=== PATIENT | female | born 1955 | race Caucasian/White ===

== ENCOUNTER 2022-05-28 10:03 | Outpatient (CLI) | payer MEDICARE, SELFPAY ==
--- NOTE | 2022-05-28 11:00 | NEURO_ITS ---
Impression: Patient reports a history of pain in right hand. # Evidence of right Carpal Tunnel Syndrome. # Needle/EMG exam showed evidence of chronic neurogenic changes in the right APB, supportive of Carpal Tunnel Syndrome. # Clinical correlation recommended. Motor Nerve Conduction Upper Extremities Median Nerve Conduction Velocity (m/sec) Terminal Latency (msec) Response Voltage(mV) Elbow-Wrist Wrist Elbow Wrist Right 58 3.4 3 6 Left 60 3.0 6 6 Ulnar Nerve Conduction Velocity (m/sec) Terminal Latency (msec) Response Voltage(mV) Above Elbow Below Elbow Wrist Above Elbow Below Elbow Wrist Right 61 61 3.0 6 6 8 Left 58 60 2.5 7 8 9 F-Wave Latency Median (ms) Ulnar (ms) Right 26.3 25.6 Left 26.4 26.7 Sensory Nerve Conduction Upper Extremities Median Nerve Stimulation Terminal Latency (msec) Wrist/Digit Response Voltage (uV) Wrist Right 4.0/3.8 32/48 Left 3.3/3.5 46/47 Ulnar Nerve Stimulation Terminal Latency (msec) Wrist/Digit Response Voltage (uV) Wrist Right 2.0 56 Left 2.0 61 Radial Nerve Terminal Latency (msec) Response Voltage(mV) Right 1.8 51 Left 1.9 61 Left Right Muscles Examined Fibrillation Fasciculation Recruitment Voltage Duration Left Right Left Right Left Right Left Right Left Right Deltoid Biceps X X Brachioradialis Triceps X X Pronator Teres X X Ext Indicis X X Ext Digitorum X X Abd Poll Brev Reduced X X 1st Dorsal Interosseus Paraspinals MTDD
== END 2022-05-28 10:04 | disposition home or self-care (01) ==
PROVIDERS: PCP Family Medicine; Visit Provider Family Medicine
DX: G56.01 Carpal tunnel syndrome, right upper limb (principal)
CPT/HCPCS: 95886; 95911

== ENCOUNTER 2023-03-11 11:27 | Outpatient (CLI) | payer MEDICARE, SELFPAY ==
[2023-03-11 12:38] LABS: Hematocrit 44.7 % (37.0-47.0); Hemoglobin 14.8 g/dL (12.0-15.0); Mean Corpuscular HGB Conc 33.1 g/dl (32-36); Mean Corpuscular Hemoglobin 30.1 pg (26-34); Mean Corpuscular Volume 90.9 fl (80-100); Mean Platelet Volume 9.3 fl (7.4-10.4); Platelet Count Result 348 k/mm3 (150-375); Red Blood Count 4.92 M/mm3 (4.2-5.4); Red Cell Distribution Width 14.3 % (11.5-14.5); White Blood Count 12.7 K/mm3 (4.5-10.0)
[2023-03-11 12:51] LABS: Anion Gap 6 mmol/L (8-16); Blood Urea Nitrogen 18 mg/dL (7-17); Calcium 9.5 mg/dL (8.4-10.2); Carbon Dioxide 31 mmol/L (22-30); Chloride 98 mmol/L (98-107); Cholesterol 215 mg/dL (0-200); Estimated Glomerular Filt Rate > 60; Glucose 106 mg/dL (65-110); HDL Direct 66 mg/dL; Potassium 3.5 mmol/L (3.4-5.0); Sodium 135 mmol/L (137-145); Triglycerides 181 mg/dL (<150)
[2023-03-11 13:02] LABS: LDL Cholesterol Direct 103 mg/dL
[2023-03-11 13:21] LABS: Thyroid Stimulating Hormone 0.822 uIU/mL (0.465-4.680)
== END 2023-03-11 11:28 | disposition home or self-care (01) ==
PROVIDERS: PCP Family Medicine; Visit Provider Family Medicine
DX: E78.5 Hyperlipidemia, unspecified (principal); E03.9 Hypothyroidism, unspecified; Z13.1 Encounter for screening for diabetes mellitus; I10 Essential (primary) hypertension
CPT/HCPCS: 36415; 80048; 80061; 84443; 85027

== ENCOUNTER 2023-06-09 06:13 | Day surgery (SDC) | payer MEDICARE, SELFPAY ==
[2023-05-11 08:37] VITALS: BMI 24.0
[2023-05-26 08:08] VITALS: BMI 24.0
[2023-06-09 06:35] VITALS: BP 138/78; PULSE 95; RESP 20; TEMP 37.6; O2SAT 98
--- NOTE | 2023-06-09 07:11 | P.HP_ITS ---
History of Present Illness History of Present Illness Consent: Risks, benefits, and alternatives have been discussed and questions answered. Patient agrees to proceed with procedure. Chief complaint: positive cologuard test Narrative: Varsha Oleary is a 67 year old female presents for screening colonoscopy. Patient recently had a Cologuard test that was positive. Patient reports that her weight appetite in her bowel movements are normal. She denies abdominal pain. She has had no bleeding. Family history noncontributory. Review of Systems Review of Systems: Review of systems noncontributory. [facility] Social History Social History Smoking status: Former smoker Tobacco type: cigarettes Alcohol intake: current Substance use type: does not use Living arrangements: with family Spiritual care concerns: No Meds Home Medications and Allergies Home Medications Medication Instructions Recorded Confirmed Type sodium,potassium,mag sulfates 17.5 See Rx Instructions PO .COMPLEX 05/11/23 06/09/23 Rx gram-3.13 gram-1.6 gram oral soln #354 mL (Suprep Bowel Prep Kit) ferrous sulfate 220 mg (44 mg 5 mg PO DAILY 05/26/23 06/09/23 History iron)/5 mL oral elixir levothyroxine 75 mcg tablet 75 mcg PO DAILY 05/26/23 06/09/23 History losartan 50 mg tablet 50 mg PO DAILY 05/26/23 06/09/23 History omeprazole 40 mg capsule,delayed 40 mg PO DAILY 05/26/23 06/09/23 History release ropinirole 5 mg tablet 5 mg PO DAILY 05/26/23 06/09/23 History trazodone 100 mg tablet 25 mg PO HS 05/26/23 06/09/23 History valacyclovir 500 mg tablet 500 mg PO DAILY 05/26/23 06/09/23 History Allergies Allergy/AdvReac Type Severity Reaction Status Date / Time codeine AdvReac Severe FLU LIKE Unverified 06/09/23 06:44 SYMPTOMS clemastine AdvReac Unknown SEVERE LEG Verified 06/09/23 06:44 RESTLESSNESS diphenhydramine AdvReac Unknown SEVERE LEG Verified 06/09/23 06:44 RESTLESSNESS menthol AdvReac Unknown SEVERE LEG Verified 06/09/23 06:44 RESTLESSNESS phenylpropanolamine AdvReac Unknown SEVERE LEG Verified 06/09/23 06:44 RESTLESSNESS pseudoephedrine AdvReac Unknown SEVERE LEG Verified 06/09/23 06:44 RESTLESSNESS tripelennamine AdvReac Unknown SEVERE LEG Verified 06/09/23 06:44 RESTLESSNESS triprolidine AdvReac Unknown SEVERE LEG Verified 06/09/23 06:44 RESTLESSNESS Exam Narrative: Physical exam reveals patient to be alert. Vital signs stable. HEENT exam is unremarkable. Patient is anicteric. Lungs are clear to auscultation and percussion. Heart is without murmur or extra sounds. Abdomen bowel sounds are present soft nontender with no organomegaly. Digital and external rectal exam is normal. Assessment and Plan Assessment and plan (1) Positive colorectal cancer screening using Cologuard test: Code(s): R19.5 - Other fecal abnormalities Status: Acute Assessment and Plan: Patient's Cologuard test was noted to be positive. Plan for surveillance colonoscopy at this time.
[2023-06-09] MEDS: LACTATED RINGERS 1,000 ML 150 ML IV CONT (07:32)
--- NOTE | 2023-06-09 08:00 | WPDANESEPPF ---
Anes - Initial Pre Proc Eval Procedure: Operation Date: 06/09/23 08:00 Proposed Procedures p Screening Colonoscopy - Albin Bojorquez MD Date/Time: 06/09/23 08:00 Surgeon: Albin Bojorquez MD Pre Op Diagnosis: positive cologuard test Patient Data Age: 67 Gender: F Height: 1.63 m Weight: 62.7 kg Last Vital Signs Temp 37.6 C 06/09/23 06:35 Pulse 95 06/09/23 06:35 Resp 20 06/09/23 06:35 BP 138/78 06/09/23 06:35 Pulse Ox 98 06/09/23 06:35 O2 Del Method Room Air 06/09/23 06:35 Allergies Allergy/AdvReac Type Severity Reaction Status Date / Time codeine AdvReac Severe FLU LIKE Unverified 06/09/23 07:32 SYMPTOMS clemastine AdvReac Unknown SEVERE LEG Verified 06/09/23 07:32 RESTLESSNESS diphenhydramine AdvReac Unknown SEVERE LEG Verified 06/09/23 07:32 RESTLESSNESS menthol AdvReac Unknown SEVERE LEG Verified 06/09/23 07:32 RESTLESSNESS phenylpropanolamine AdvReac Unknown SEVERE LEG Verified 06/09/23 07:32 RESTLESSNESS pseudoephedrine AdvReac Unknown SEVERE LEG Verified 06/09/23 07:32 RESTLESSNESS tripelennamine AdvReac Unknown SEVERE LEG Verified 06/09/23 07:32 RESTLESSNESS triprolidine AdvReac Unknown SEVERE LEG Verified 06/09/23 07:32 RESTLESSNESS Home Medications Medication Instructions Recorded Confirmed Type sodium,potassium,mag sulfates 17.5 See Rx Instructions PO .COMPLEX 05/11/23 06/09/23 Rx gram-3.13 gram-1.6 gram oral soln #354 mL (Suprep Bowel Prep Kit) ferrous sulfate 220 mg (44 mg 5 mg PO DAILY 05/26/23 06/09/23 History iron)/5 mL oral elixir levothyroxine 75 mcg tablet 75 mcg PO DAILY 05/26/23 06/09/23 History losartan 50 mg tablet 50 mg PO DAILY 05/26/23 06/09/23 History omeprazole 40 mg capsule,delayed 40 mg PO DAILY 05/26/23 06/09/23 History release ropinirole 5 mg tablet 5 mg PO DAILY 05/26/23 06/09/23 History trazodone 100 mg tablet 25 mg PO HS 05/26/23 06/09/23 History valacyclovir 500 mg tablet 500 mg PO DAILY 05/26/23 06/09/23 History Patient hx anesthesia problems: none Family hx anesthesia problems: none Results Review: All pre-operative results and documents have been reviewed as part of the pre-operative evaluation. [facility] Social History Social History Smoking status: Former smoker Tobacco type: cigarettes Alcohol intake: current Substance use type: does not use Living arrangements: with family Spiritual care concerns: No Anes - Eval Final PreProcedure Day of Procedure 06/09/23 08:00 Patient weight: normal Heart: regular rate and rhythm Lungs: decreased breath sounds Airway: Mallampati scale class II Neurological: alert and oriented Last oral intake: >/= 8 hours ASA classification: III Emergent: no Anesthetic plan: proceed Anesthesia type and monitoring: general GIVS and standard monitoring Results Review: All pre-operative results and documents have been reviewed as part of the pre-operative evaluation. Informed Consent: The patient's anesthetic plan and its attendant risks and benefits were discussed with the patient/family/POA. Questions were solicited and answers provided to the satisfaction of the patient/family/POA.
[2023-06-09 08:41] VITALS: BP 110/61; PULSE 87; RESP 22; O2SAT 99
[2023-06-09 08:51] VITALS: BP 121/64; PULSE 87; RESP 20; O2SAT 95
[2023-06-09 09:01] VITALS: BP 122/93; PULSE 87; RESP 18; O2SAT 95
--- NOTE | 2023-06-09 09:12 | WPDANESPN ---
Anes - Prog Note Post-Op Date/Time: 06/09/23 09:12 Cardiovascular status: normal Respiratory status: normal Airway patency: baseline Mental status: baseline Post-Op hydration status: normal Vital Signs: Last Vital Signs Temp 37.6 C 06/09/23 06:35 Pulse 87 06/09/23 09:01 Resp 18 06/09/23 09:01 BP 122/93 H 06/09/23 09:01 Pulse Ox 95 06/09/23 09:01 O2 Del Method Room Air 06/09/23 09:01 Pain Score (VAS): 0 I/O: Intake & Output 06/08/23 06/09/23 06/09/23 23:59 07:59 15:59 Intake Total 600 Balance 600 Patient Feedback: Patient satisfied with anesthetic care.
== END 2023-06-09 09:21 | disposition home or self-care (01) ==
PROVIDERS: PCP Family Medicine; Visit Provider Internal Medicine Gastroenterology
PROC: 0DJD8ZZ Inspection of Lower Intestinal Tract, Via Natural or Artificial Opening Endoscopic (ICD-10-PCS; CPT 45378; principal; 2023-06-09 08:00)
DX: R19.5 Other fecal abnormalities (principal); D12.3 Benign neoplasm of transverse colon; D12.5 Benign neoplasm of sigmoid colon; K57.30 Diverticulosis of large intestine without perforation or abscess without bleeding
CPT/HCPCS: 45385

== ENCOUNTER 2023-06-09 07:50 | Outpatient (NON) | payer MEDICARE, SELFPAY | END 2023-06-09 07:51 | disposition home or self-care (01) | PROVIDERS: PCP Family Medicine; Visit Provider Internal Medicine Gastroenterology | DX: R19.5 Other fecal abnormalities (principal) | CPT/HCPCS: 88305 ==

== ENCOUNTER 2024-03-12 14:47 | Outpatient (CLI) | payer MEDICARE, SELFPAY ==
[2024-03-12 15:17] LABS: Basophils Absolute Auto 0.1 K/mm3 (0.0-0.1); Basophils Percent Auto 0.5 % (0.2-1.2); Eosinophils Absolute Auto 0.2 K/mm3 (0-0.3); Eosinophils Percent Auto 1.6 % (0-4.4); Hematocrit 41.2 % (37.0-47.0); Hemoglobin 13.8 g/dL (12.0-15.0); Immature Granulocyte Absolute 0.05 K/mm3 (0.00-0.031); Immature Granulocyte Percent A 0.5 % (0-0.5); Lymphocytes Absolute Auto 1.97 K/mm3 (0.9-3.2); Lymphocytes Percent Auto 20.7 % (18.3-44.2); Mean Corpuscular HGB Conc 33.5 g/dl (32-36); Mean Corpuscular Volume 89.6 fl (80-100); Mean Platelet Volume 9.7 fl (7.4-10.4); Monocytes Absolute Auto 0.7 K/mm3 (0.1-0.6); Monocytes Percent Auto 7.2 % (2.6-8.5); Neutrophils Absolute Auto 6.6 K/mm3 (1.3-6.7); Neutrophils Percent Auto 69.5 % (45.5-73.1); Platelet Count Result 284 k/mm3 (150-375); Red Cell Distribution Width 13.2 % (11.5-14.5); White Blood Count 9.5 K/mm3 (4.5-10.0)
[2024-03-12 15:28] LABS: Anion Gap 3 mmol/L (4-12); Blood Urea Nitrogen 21 mg/dL (7-17); Calcium 9.4 mg/dL (8.4-10.2); Carbon Dioxide 32 mmol/L (22-30); Chloride 102 mmol/L (98-107); Cholesterol 175 mg/dL (0-200); Estimated Glomerular Filt Rate > 60; Glucose 117 mg/dL (65-110); HDL Direct 57 mg/dL; Potassium 4.4 mmol/L (3.4-5.0); Sodium 137 mmol/L (137-145); Triglycerides 161 mg/dL (<150)
[2024-03-12 15:39] LABS: LDL Cholesterol Direct 80 mg/dL
[2024-03-12 15:49] LABS: Iron 52 ug/dL (37-170)
[2024-03-12 16:02] LABS: Percent Iron Saturation 14 % (20-50)
[2024-03-12 16:35] LABS: Hepatitis C Virus Antibody Negative (Negative)
== END 2024-03-12 14:48 | disposition home or self-care (01) ==
PROVIDERS: PCP Family Medicine; Visit Provider Nurse Practitioner Family
DX: E78.5 Hyperlipidemia, unspecified (principal); E03.9 Hypothyroidism, unspecified; I10 Essential (primary) hypertension; D50.9 Iron deficiency anemia, unspecified; Z11.59 Encounter for screening for other viral diseases
CPT/HCPCS: 36415; 80048; 80061; 83540; 83550; 84443; 85025; 86803

== ENCOUNTER 2024-11-28 08:31 | Emergency (ER) | payer MEDICARE, SELFPAY ==
[2024-11-28 08:45] VITALS: BP 162/99; PULSE 70; RESP 16; TEMP 36.6; O2SAT 100
[2024-11-28 08:46] VITALS: BP 135/85; PULSE 72; RESP 16; O2SAT 98
--- OUTSIDE RECORDS SUMMARY | 2024-11-28 08:53 | XMS_ITS | Clinical Summary ---
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 This disclosure is being madepursuant to the Care Everywhere program and may not contain all information available regarding this patient. Last updated 17.[facility] Allergies Active Allergy Reactions Criticality Noted Date Comments Codeine Vomiting 02/26/2019 Immunizations Immunization Administration Dates Next Due INFLUENZA VACCINE, QUADR. (F LUZONE; FLULAVAL; FLUARIX; AFLURIA QUADRIVALENT; 6MO+), 0.5 ML (IIV4) 02/26/2019 Social History Tobacco Use Types Packs/Day Years Used Date Smoking Tobacco: Never Assessed Comments Unknown Sex and Gender Information Value Date Recorded Sex Assigned at Not on file Legal Sex Female 12:02 PM [employer] Gender Identity Not on file Sexual Orientation Not on file Plan of Treatment Health Maintenance Due Date Last Done Comments BONE DENSITY TESTING 1955 COLOGUARD (AGES 45-75) - COL ON CA SCREENING 1956 COLON MONITORING 1956 COLONOSCOPY - COLON CA SCREENING 1956 CT COLONOGRAPHY - COLON CA SCREENING 1956 Colorectal Cancer Screening 1956 FIT - COLON CA SCREENING 1956 FLEX SIG - COLON CA SCREENING 1956 LIPID TESTING 1955 MAMMOGRAM 1955 MEDICARE AWV 12 MONTHS 1956 HEPATITIS C SCREENING 11/28/1974 DTAP/TDAP/TD VACCINES (1 - Tdap) 12/03/1975 PNEUMOCOCCAL VACCINE 50+ (1 of 1 - PCV) 2006 ZOSTER VACCINE (1 of 2) 2006 COVID-19 VACCINE (1 - 2023-2 5 season) 2023 DEPRESSION SCREENING 03/28/2024 INFLUENZA VACCINE (#1) 2024 02/26/2019 Respiratory Syncytial Virus (RSV) Vaccine Pt: or over 60 yrs (1 - 1-dose 75+ series) 12/03/2031 HEPATITIS B VACCINE Aged Out No longe r eligible based on patient's age to complete this topic HIB VACCINE Aged Out No longer eligi ble based on patient's age to complete this topic HPV VACCINE Aged Out No longer eligi ble based on patient's age to complete this topic MENINGOCOCCAL (Group B) VACC INE SHARED DECISION-MAKING Aged Out No longer eligibl e based on patient's age to complete this topic MENINGOCOCCAL GROUPS A/C/Y/W VACCINE Aged Out No longer eligible b ased on patient's age to complete this topic Insurance MEDICARE Member Subscriber Plan / Payer (Ef fective for All Dates) Name:Varsha Black Member ID:[id number] Relation to Subscriber:Self Name:Varsha Black Subscriber ID:[id number] Payer ID:Not on file Group ID:Not on file Type:Medicare Address: [address] MEDICARE Member Subscriber Plan / Payer (Ef fective for All Dates) Name:Varsha Black Member ID:[id number] Relation to Subscriber:Self Name:Varsha Black Subscriber ID:[id number] Payer ID:Not on file Group ID:Not on file Type:Medicare Address: [address] MEDICARE AARP Care Teams 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
--- OUTSIDE RECORDS SUMMARY | 2024-11-28 08:53 | XMS_ITS | Clinical Summary ---
Author Organization [facility] Address [facility] [place] [address] Care Team Providers Care Legal Activity Adjudicator Name Role Phone Cherise Wheatley NP Primary Care Provider Allergies Active Allergy Reactions Criticality Noted Date Comments Sulfa (Sulfonamide Antibiotics) Other (See comments) Low 01/01/2010 Medications levothyroxine (SYNTHROID, LEVOTHROID) 25 mcg tablet 0 03/20/2018 Active losartan-hydroCHLO ROthiazide (HYZAAR) 50-12.5 mg per tablet 3 03/19/2018 Activ e omeprazole (PriLOSEC) 40 mg capsule 3 03/19/2018 Active INTRAROSA 6.5 mg insert 1 04/07/2018 Active rOPINIRole (REQUIP) 2 mg tablet 3 03/19/2018 Active traZODone (DESYREL) 50 mg tablet 3 03/19/2018 Active Active Problems Problem Noted Date Diagnosed Date Genetic testing of female 04/12/2018 History of left breast cancer 04/12/2018 Surgical History Surgery Date Site/Laterality Comments BREAST LUMPECTOMY 03/28/2004 - 03/27/2005 Left BREAST BIOPSY Left Medical History Medical History Date Comments History of chemotherapy 2005 History of radiation therapy 2004 Social History Tobacco Use Types Packs/Day Years Used Date Smoking Tobacco: Former Smokeless Tobacco: Never Comments No Sex and Gender Information Value Date Recorded Sex Assigned at Not on file 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 Gender Identity Not on file Sexual Orientation Not on file Obstetrics History Para Term AB IAB SAB Ectopic Multiple Livin g Live Births 2 2 2 Date Outcome GA Total Labor Labor/2nd/3rd Weight Sex Type Anes PTL Kathy A1 A5 Name Clin Term Term Last Filed Vital Signs Vital Sign Reading Time Taken Comments Blood Pressure - - Pulse - - Temperature - - Respiratory Rate - - Oxygen Saturation - - Inhaled Oxygen Concentration - - Weight 68.9 kg (152 lb) 07/23/2024 4:02 PM CDT Height 160.5 cm (5' 3.19) 07/23/2024 4:02 PM CD T Body Mass Index 26.76 07/23/2024 4:02 PM CDT Plan of Treatment Health Maintenance Due Date Last Done Comments Colon Cancer Screening-Colonoscopy 1956 Depression Screening 1956 Fall Risk Assessment 1956 Hepatitis C Screening 1956 Osteoporosis Screening-Bone Density Scan 1956 Pneumococcal vaccine 65+ (1 of 1 - PCV) 2006 Well Visit 65+ 2021 Influenza Vaccine (#1) 2024 , 12/23/2021, 12/22/2020, Additional history exists Breast Cancer Screening-Mammogram 07/23/2025 07/23/2024, 03/11/2023, 11/24/2020, Additional history exists DTaP/Tdap/Td Vaccine (2 - Td or Tdap) 12/24/2031 12/23/2021 Hepatitis B Screening Completed 07/19/2011 , 02/08/2011, 01/11/2011 Zoster Vaccine Completed 01/21/2020, 04/16/2019 Procedures Procedure Name Priority Date/Time Associated Diagnosis Comments SCREENING MAMMOGRAM BILATERAL W IRVIN Schedule Routine, Read Routine (OP Routine) 07/23/2024 4:03 PM CDT Screening mammogram, encounter for from Last 3 Months or Most Recently Relevant to Health Maintenance Results * Screening Mammogram Bilateral W Irvin (07/23/2024 4:03 PM CDT) Anatomical Region Laterality Modality Breast Bilateral Mammography Impressions 07/23/2024 4:08 PM CDT BI-RADS ATLAS category (overall): 2 Benign There is no mammographic evidence of malignancy. A 1 year screening mammogram is recommended. The patient has been or will be contacted. We recommend annual screening mammography for women at average risk of breast cancer beginning at age 40, based on guidelines of the [employer] (ACR Practice Parameter for the Performance of Screening and Diagnostic Mammography) and [employer]. For women with and elevated risk of breast cancer, please refer to the ACR Practice Parameter for specific screening recommendations. The patient will be entered into a reminder system with a target due date of 1 year for her next screening exam. Narrative 07/23/2024 4:08 PM CDT Screening Mammogram Bilateral W Irvin: 11/24/20 The study was acquired using full field digital technology and interpreted from soft copy. 2D digital mammographic views, as well as 3D digital tomosynthesis were performed in the CC and MLO projections. CLINICAL: Encounter for screening mammogram for malignant neoplasm of breast No relevant medical history has been documented for this patient. No known family history of breast cancer. Personal history of left breast cancer with conservation therapy. COMPARISONS: 02/13/2018 Screening Mammogram Bilateral W Irvin 12/24/2016 Screening Mammogram Bilateral W Irvin BREAST TISSUE: The breasts are heterogeneously dense, which may obscure small masses. FINDINGS: There are postoperative findings in the left breast. There are benign calcifications in both breasts. There is no new suspicious finding in either breast on mammogram. us Self Screening Mammogram IMG MAMMO PROCEDURES Fi nal Result from Last 3 Months or Most Recently Relevant to Health Maintenance Insurance [place] [facility] MEDICARE Care Teams Legal Activity Adjudicator Relationship Specialty Start Date End Date Cherise Wheatley NP [address] [place] [address] PCP - General Family Medicine 05/24/24
[2024-11-28 09:31] VITALS: BP 123/78; PULSE 68; RESP 17; O2SAT 98
[2024-11-28 09:57] LABS: Hematocrit 42.0 % (37.0-47.0); Hemoglobin 14.0 g/dL (12.0-15.0); Immature Granulocyte Percent A 0.2 % (0-0.5); Lymphocytes Absolute Auto 1.77 K/mm3 (0.9-3.2); Mean Corpuscular HGB Conc 33.3 g/dl (32-36); Mean Corpuscular Hemoglobin 29.9 pg (26-34); Mean Corpuscular Volume 89.6 fl (80-100); Nucleated Red Blood Cells Absolute Auto 0.000 K/mm3 (0.0-0.012); Nucleated Red Blood Cells Perc 0.0 % (0.0-0.2); Platelet Count Result 264 k/mm3 (150-375); Red Blood Count 4.69 M/mm3 (4.2-5.4); White Blood Count 8.5 K/mm3 (4.5-10.0)
--- NOTE | 2024-11-28 10:00 | ED.DENTAL ---
HPI - Dental/Oral General Chief complaint: Dental/Oral Stated complaint: spitting up blood Time Seen by Provider: 11/28/24 09:08 Source: patient Mode of arrival: ambulatory Limitations: no limitations History of Present Illness HPI Narrative: This is a 68-year-old female that presents to the emergency department for bleeding from her gums. Reports this has been happening frequently over the last month after brushing her teeth. Today when she was at work she spit up a blood clot. She went to go see her PCP and was prompted to be seen in the ER. No current bleeding. She is not on anticoagulation Related Data Home Medications ?Medication ?Instructions ?Recorded ?Confirmed ?Last Taken ?Type ferrous sulfate 220 mg (44 mg 5 mg PO DAILY 05/26/23 06/09/23 Unknown History iron)/5 mL oral elixir levothyroxine 75 mcg tablet 75 mcg PO DAILY 05/26/23 06/09/23 Unknown History losartan 50 mg tablet 50 mg PO DAILY 05/26/23 06/09/23 06/09/23 History omeprazole 40 mg capsule,delayed 40 mg PO DAILY 05/26/23 06/09/23 Unknown History release ropinirole 5 mg tablet 5 mg PO DAILY 05/26/23 06/09/23 Unknown History trazodone 100 mg tablet 25 mg PO HS 05/26/23 06/09/23 Unknown History valacyclovir 500 mg tablet 500 mg PO DAILY 05/26/23 06/09/23 Unknown History Allergies Allergy/AdvReac Type Severity Reaction Status Date / Time codeine AdvReac Severe FLU LIKE Unverified 06/09/23 07:32 SYMPTOMS clemastine AdvReac Unknown SEVERE LEG Verified 06/09/23 07:32 RESTLESSNESS diphenhydramine AdvReac Unknown SEVERE LEG Verified 06/09/23 07:32 RESTLESSNESS menthol AdvReac Unknown SEVERE LEG Verified 06/09/23 07:32 RESTLESSNESS phenylpropanolamine AdvReac Unknown SEVERE LEG Verified 06/09/23 07:32 RESTLESSNESS pseudoephedrine AdvReac Unknown SEVERE LEG Verified 06/09/23 07:32 RESTLESSNESS tripelennamine AdvReac Unknown SEVERE LEG Verified 06/09/23 07:32 RESTLESSNESS triprolidine AdvReac Unknown SEVERE LEG Verified 06/09/23 07:32 RESTLESSNESS Review of Systems Review of Systems: All systems reviewed & are unremarkable except as noted in HPI and below PMFSH Past Medical History Medical History (Updated 11/28/24 @ 10:09 by Tanja Grier PA-C) GERD (gastroesophageal reflux disease) Hypertension Restless leg syndrome Social History Social History Smoking status: Former smoker Tobacco type: cigarettes Alcohol intake: current Substance use type: does not use Living arrangements: with family Spiritual care concerns: No Exam Narrative: GENERAL: Well-appearing, well-nourished, and in no acute distress. HEAD: Normocephalic, atraumatic. EYES: EOMI. ENT: Nares clear, no rhinorrhea or epistaxis. Mucous membranes moist. Oropharynx without tonsillar hypertrophy exudate or other lesions. NECK: Supple. No adenopathy or masses. CHEST: Clear to auscultation. No respiratory distress. No wheezes rales or rhonchi HEART: Regular rate and rhythm. No murmur heard. Normal peripheral pulses. EXTREMITIES: Normal range of motion. No edema. SKIN: Warm, dry, no rash. NEURO: No focal deficits. Alert and oriented x3. PSYCH: Normal mood and affect Course Vital Signs Vital signs: Vital Signs Temperature 98 F 11/28/24 08:45 Pulse Rate 70 11/28/24 08:45 Respiratory Rate 16 11/28/24 08:45 Blood Pressure 162/99 H 11/28/24 08:45 Pulse Oximetry 100 11/28/24 08:45 Oxygen Delivery Room Air 11/28/24 08:45 Temperature 98 F 11/28/24 08:45 Pulse Rate 70 11/28/24 08:45 Respiratory Rate 16 11/28/24 08:45 Blood Pressure 162/99 H 11/28/24 08:45 Pulse Oximetry 100 11/28/24 08:45 Oxygen Delivery Room Air 11/28/24 08:45 MDM - Dental/Oral MDM Narrative Medical decision making narrative: Patient presents the emergency department for bleeding from her gums, ongoing over the last month. She is not on a coagulation. No current bleeding. Blood work is normal. Instructed to have further follow-up with her dentist and PCP. She was given warnings to return ER Differential Diagnosis Differential diagnosis: Likely other (Gingivitis, thrombocytopenia) Lab Data Attestation: I reviewed the patient's lab results. 11/28/24 09:47 11/28/24 09:47 Labs: Lab Results 11/28/24 Range/Units 09:47 WBC 8.5 (4.5-10.0) K/mm3 RBC 4.69 (4.2-5.4) M/mm3 Hgb 14.0 (12.0-15.0) g/dL Hct 42.0 (37.0-47.0) % MCV 89.6 (80-100) fl MCH 29.9 (26-34) pg MCHC 33.3 (32-36) g/dl RDW 13.3 (11.5-14.5) % Plt Count 264 (150-375) k/mm3 MPV 9.9 (7.4-10.4) fl Immature Gran % (Auto) 0.2 (0-0.5) % Neut % (Auto) 70.1 (45.5-73.1) % Lymph % (Auto) 20.8 (18.3-44.2) % [place] % (Auto) 6.5 (2.6-8.5) % Eos % (Auto) 1.8 (0-4.4) % Baso % (Auto) 0.6 (0.2-1.2) % Lymph # (Auto) 1.77 (0.9-3.2) K/mm3 [place] # (Auto) 0.6 (0.1-0.6) K/mm3 Eos # (Auto) 0.2 (0-0.3) K/mm3 Baso # (Auto) 0.1 (0.0-0.1) K/mm3 Abs Immat Gran (auto) 0.02 (0.00-0.031) K/mm3 Absolute Neuts (auto) 6.0 (1.3-6.7) K/mm3 Absolute Nucleated RBC 0.000 (0.0-0.012) K/mm3 Nucleated RBC % 0.0 (0.0-0.2) % PT 12.2 (11.1-14.7) Seconds INR 0.9 APTT 24.7 (22.3-36.8) Seconds Sodium 137 (137-145) mmol/L Potassium 3.5 (3.4-5.0) mmol/L Chloride 101 (98-107) mmol/L Carbon Dioxide 27 (22-30) mmol/L Anion Gap 9 (4-12) mmol/L BUN 16 (7-17) mg/dL Creatinine 0.72 (0.7-1.0) mg/dL Estim Creat Clear Calc 57 ml/min Estimated GFR > 60 (59 - ) Glucose 94 (65-110) mg/dL Calcium 9.8 (8.4-10.2) mg/dL Total Bilirubin 0.5 (0.2-1.3) mg/dL AST 34 (14-36) U/L ALT 21 (6-35) U/L Alkaline Phosphatase 97 (38-126) U/L Total Protein 7.6 (6.3-8.2) g/dL Albumin 4.4 (3.5-5.1) g/dL Critical Care Time Critical Care Time Critical Care Time: No Discharge Plan Discharge Clinical Impression: Gingival bleeding Patient Disposition: Home Condition: Stable Instructions: Gingivitis (ED) Additional Instructions: Return to the emergency department if you experience fever, shortness of breath, rash, or any other symptoms that are concerning to you. Your blood work today is normal Follow up with your primary care doctor and dentist Patient Language: Sami Prescriptions: No Action losartan 50 mg tablet 50 mg PO DAILY levothyroxine 75 mcg tablet 75 mcg PO DAILY ropinirole 5 mg tablet 5 mg PO DAILY valacyclovir 500 mg tablet 500 mg PO DAILY omeprazole 40 mg Capsule,Delayed Release(Dr/Ec) 40 mg PO DAILY trazodone 100 mg tablet 25 mg PO HS ferrous sulfate 220 mg (44 mg iron)/5 mL elixir 5 mg PO DAILY Follow-up/Referrals: Dioni,Cherise Lloyd NP [Primary Care Provider, Unknown]
[2024-11-28 10:05] LABS: Alanine Aminotransferase 21 U/L (6-35); Albumin Level 4.4 g/dL (3.5-5.1); Alkaline Phosphatase 97 U/L (38-126); Anion Gap 9 mmol/L (4-12); Aspartate Amino Transferase 34 U/L (14-36); Bilirubin,Total 0.5 mg/dL (0.2-1.3); Blood Urea Nitrogen 16 mg/dL (7-17); Calcium 9.8 mg/dL (8.4-10.2); Carbon Dioxide 27 mmol/L (22-30); Chloride 101 mmol/L (98-107); Estimated CRCL calculation 57 ml/min; Estimated Glomerular Filt Rate > 60; Glucose 94 mg/dL (65-110); Potassium 3.5 mmol/L (3.4-5.0); Sodium 137 mmol/L (137-145); Total Protein 7.6 g/dL (6.3-8.2)
[2024-11-28 10:08] LABS: INR 0.9; Partial Thromboplastin Time 24.7 Seconds (22.3-36.8); Prothrombin Time 12.2 Seconds (11.1-14.7)
--- OUTSIDE RECORDS SUMMARY | 2024-11-28 10:09 | XMS_ITS | Clinical Summary ---
Author Organization 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 For women [...] [place] [facility] MEDICARE Care Teams Photo Lab Manager Relationship Specialty Start Date End Date Chersie Wheatley NP [address] [place] [address] PCP - General Family Medicine 05/24/24
--- OUTSIDE RECORDS SUMMARY | 2024-11-28 10:09 | XMS_ITS | Clinical Summary ---
Author Organization [facility] Address [address] [place] [address] Care Team Providers Care Supervisor Firearms Name Role Phone Aliza Barber MD Primary Care Provider [phone] Source Comments [facility],non-owned Affiliates and Associated Physician Practices is amultiple site organization consisting of ambulatory clinics and hospital sitesin [place], [place], [place] and [place]. This disclosure is being madepursuant to the Care Everywhere program and may not contain all information available regarding this patient. 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 Gender Identity Not on file Sexual Orientation [...] fective for All Dates) Name:Varsha Black Member ID:[id number] Relation to Subscriber:Self Name:Varsha Black Subscriber ID:[id number] Payer ID:Not on file Group ID:Not on file Type:Medicare Address: [address] MEDICARE Member Subscriber Plan / Payer (Ef fective for All Dates) Name:Varsha Black Member ID:[id number] Relation to Subscriber:Self Name:Varsha Black Subscriber ID:[id number] Payer ID:Not on file Group ID:Not on file Type:Medicare Address: [address] MEDICARE [employer] Care Teams Supervisor Firearms Relationship Specialty Start Date End Date Aliza Barber MD PCP - General Family Medicine 02/26/19
[2024-11-28 10:16] VITALS: BP 138/82; PULSE 74; RESP 14; O2SAT 100
== END 2024-11-28 10:21 | disposition home or self-care (01) ==
PROVIDERS: Emergency Provider Physician Assistant; PCP Nurse Practitioner Family
DX: K06.8 Other specified disorders of gingiva and edentulous alveolar ridge (principal)
CPT/HCPCS: 36415; 80053; 85025; 85610; 85730; 99283